=== PATIENT | female | born 1985 | race Caucasian/White ===

== ENCOUNTER → 2019-06-04 09:38 | Outpatient (BNVA) | payer OTHER, SELFPAY | PROVIDERS: Family Provider Nurse Practitioner Family; PCP Nurse Practitioner Family; Visit Provider Registered Nurse | DX: R68.89 Other general symptoms and signs (principal); R51 Headache; J01.40 Acute pansinusitis, unspecified; J98.8 Other specified respiratory disorders; J11.00 Influenza due to unidentified influenza virus with unspecified type of pneumonia | CPT/HCPCS: 87804 ==

== ENCOUNTER → 2020-07-21 13:49 | Outpatient (BNVA) | payer OTHER, SELFPAY | PROVIDERS: Family Provider Nurse Practitioner Family; PCP Nurse Practitioner Family; Visit Provider Registered Nurse | DX: N39.0 Urinary tract infection, site not specified (principal); L71.9 Rosacea, unspecified; R39.9 Unspecified symptoms and signs involving the genitourinary system | CPT/HCPCS: 81000 ==

== ENCOUNTER → 2021-06-03 11:53 | Outpatient (BNVA) | payer OTHER, SELFPAY | PROVIDERS: Family Provider Nurse Practitioner Family; PCP Registered Nurse; Visit Provider Registered Nurse | DX: M25.50 Pain in unspecified joint (principal); E53.8 Deficiency of other specified B group vitamins | CPT/HCPCS: 80053; 82607; 84443; 85025; 85651; 86038; 86140; 86431 ==

== ENCOUNTER → 2022-05-11 12:30 | Outpatient (BNVA) | payer OTHER, SELFPAY | PROVIDERS: Family Provider Nurse Practitioner Family; PCP Registered Nurse; Visit Provider Nurse Practitioner Women's Health | DX: Z01.419 Encounter for gynecological examination (general) (routine) without abnormal findings (principal); Z12.4 Encounter for screening for malignant neoplasm of cervix; N92.0 Excessive and frequent menstruation with regular cycle; Z30.09 Encounter for other general counseling and advice on contraception; N39.46 Mixed incontinence | CPT/HCPCS: 84439; 84443; 84702; 85025; 87624 ==

== ENCOUNTER → 2022-05-23 11:14 | Outpatient (BNVA) | payer OTHER, SELFPAY | PROVIDERS: Family Provider Nurse Practitioner Family; PCP Registered Nurse; Visit Provider Nurse Practitioner Women's Health | DX: N92.0 Excessive and frequent menstruation with regular cycle (principal); D25.1 Intramural leiomyoma of uterus | CPT/HCPCS: 76830 ==

== ENCOUNTER → 2022-05-26 14:28 | Outpatient (BNVA) | payer OTHER, SELFPAY | PROVIDERS: Family Provider Nurse Practitioner Family; PCP Registered Nurse; Visit Provider Nurse Practitioner Women's Health | DX: N93.9 Abnormal uterine and vaginal bleeding, unspecified (principal) | CPT/HCPCS: 88305 ==

== ENCOUNTER → 2022-08-02 15:45 | Outpatient (BNVA) | payer OTHER, SELFPAY | PROVIDERS: Family Provider Nurse Practitioner Family; PCP Registered Nurse; Visit Provider Obstetrics & Gynecology | DX: D25.9 Leiomyoma of uterus, unspecified (principal) | CPT/HCPCS: 83001; 84443; 84702 ==

== ENCOUNTER → 2022-09-15 16:39 | Outpatient (BNVA) | payer OTHER, SELFPAY | PROVIDERS: Family Provider Nurse Practitioner Family; PCP Registered Nurse; Visit Provider Registered Nurse | DX: L98.9 Disorder of the skin and subcutaneous tissue, unspecified (principal) | CPT/HCPCS: 88305 ==

== ENCOUNTER 2022-09-21 14:13 | Observation (INO) | payer OTHER, SELFPAY ==
[2022-09-19 13:17] LABS: Basophils # 0.1 10^3/uL (0.0-0.1); Basophils % 0.6 %; Eosinophils # 0.1 10^3/uL (0.0-0.8); Eosinophils % 1.2 %; Hematocrit 39.1 % (37.0-47.0); Hemoglobin 13.2 g/dL (11.5-15.3); Lymphocytes # 1.9 10^3/uL (0.8-4.8); Lymphocytes % 23.2 %; Mean Corpuscular HGB Conc 33.8 g/dL (30.0-36.0); Mean Corpuscular Hemoglobin 29.7 pg (28.0-34.0); Mean Corpuscular Volume 87.9 fl (81-99); Mean Platelet Volume 10.3 fL (7.4-10.4); Monocytes # 0.4 10^3/uL (0.2-0.9); Monocytes % 4.6 %; Neutrophils # 5.62 10^3/uL (1.8-7.7); Neutrophils % 69.9 %; Nucleated Red Blood Cells % 0 %; Platelet Count 243 10^3/cmm (130-400); Red Blood Count 4.45 10^6/uL (4.1-5.3); Red Cell Distribution Width 11.7 % (12.1-15.1); White Blood Count 8.1 10^3/uL (4.0-10.0)
--- NOTE | 2022-09-19 13:20 | ANES.PREANE2 ---
Pre-Anesthetic Assessment Height/Weight: Height 1.68 m Weight 86.183 kg Operation Date: 09/21/22 09:05 Proposed Procedures p Total Vaginal Hysterectomy(Not Applicable) - Omar Sinclair MD s Total vaginal hysterectomy, single incision slin,60909,D25.1, N92.0,N39.46(Not Applicable) - Omar Sinclair MD Familial anesthetic complications: none Was Beta Ese taken within 24 hours: N/A Was Clonidine taken within 24 hours: N/A Social No alcohol and No tobacco Exam alert, oriented x 3, clear to auscultation bilaterally and regular rate & rhythm Airway Submandibular: within normal limits Cervical ROM: within normal limits Mallampati: Class II Dentition: full Neuropsych Headache Anesthetic Plan ASA status: 1 Anesthesia: General Medications/Allergies Home Medications Medication Instructions Recorded Confirmed Last Taken Type ribhpindic-ecqunnhpmbyvh-fwbydqur 1 cap PO Q6H PRN Migraine Headache 09/02/22 09/19/22 09/12/22 History 50 mg-325 mg-40 mg capsule (Esgic) Allergies Allergy/AdvReac Type Severity Reaction Status Date / Time benzoyl peroxide Allergy Severe Chemical Verified 09/19/22 12:31 burn [facility] Anesthesia Medical History No pertinent past medical history neghx: htn,dm,thyroid,dvt/pe PCP: Rizwan Barrow Tremor hand and body--- being evaluated by Neurology Surgical History H/O dilation and curettage (~2013) retained placenta H/O lumpectomy Bilateral - both returned benign History of appendectomy Family History Father Rheumatoid arthritis Gout Arthritis Mother Diabetes Family/Other Diabetes maternal Heart disease paternal Hyperchloremia paternal Hypertension paternal Grandmother Diabetes maternal Sister Diabetes Stroke Brother Stroke Denies family history of Colon cancer Ovarian cancer Breast cancer Uterine cancer Thyroid condition Social History Smoking and tobacco status: never smoked Alcohol intake: never Substance/Drug Use: never Adopted: No Caregiver/support person: No Lives independently: No Household members: spouse Marital status: service: No Current occupational status: employed Sexually active: Yes Do you think of yourself as: Straight/Heterosexual Current gender identity: Female Female Reproductive History Date of last menstrual period: 09/09/22 Data Anesthesia 09/19/22 12:49 09/19/22 12:49 Short CBC 09/19/22 Range/Units 12:49 WBC 8.1 (4.0-10.0) 10^3/uL Hgb 13.2 (11.5-15.3) g/dL Hct 39.1 (37.0-47.0) % MCV 87.9 (81-99) fl Plt Count 243 (130-400) 10^3/cmm Neut % (Auto) 69.9 % Neut # (Auto) 5.62 (1.8-7.7) 10^3/uL Cardiac Studies: No Data to Display
[2022-09-19 13:29] LABS: Alanine Aminotransferase 11 U/L (0-33); Albumin Level 4.4 g/dL (3.5-5.2); Alkaline Phosphatase 56 U/L (35-105); Anion Gap 13.7 (5-19); Aspartate Amino Transferase 11 U/L (0-32); Blood Urea Nitrogen 14 mg/dL (6-20); Calcium 8.6 mg/dL (8.5-10.5); Carbon Dioxide 24 mmol/L (22-29); Chloride 104 mmol/L (98-107); Globulin 2.7 g/dL (1.3-4.6); Glomerular Filtration Rate 111.3 mL/min (90-130); Glucose 106 mg/dL (65-115); Osmolality Calculated 287 mOsm/kg (285-295); Potassium 3.7 mmol/L (3.5-5.1); Sodium 138 mmol/L (136-145); Total Protein 7.1 g/dL (6.6-8.7)
[2022-09-21] VITALS (17 sets, daily range): BP systolic 90–141; BP diastolic 23–82; PULSE 53–80; RESP 16–18; TEMP 36.1–36.8; O2SAT 95–100
[2022-09-21 08:00] LABS: Add Urine Microscopic? NO; Charge for UA Resulting for Rev
[2022-09-21] MEDS: sodium chloride 0.9% 500 ML IV (08:16)
[2022-09-21] MEDS: scopolamine 1.5 Patch 1 PATCH TRANSDERMA (08:17)
[2022-09-21 08:34] LABS: Bilirubin Urine Neg (Negative); Blood Urine Neg (Negative); Glucose Urine UA Norm (Normal); Ketones Urine Negative (Negative); Leukocyte Esterase Urine Negative (Negative); Nitrate Urine Negative (Negative); Protein Urine Neg (Negative); Urine Appearance Clear (CLEAR); Urine Color Yellow (Yellow); Urobilinogen Urine Norm (Negative); pH Urine 5 (5-7)
[2022-09-21 08:37] LABS: OR HCG Qualitative Urine Negative (Negative)
[2022-09-21] MEDS: sodium chloride 0.9% 1,000 ML 30 ML IV (09:02)
--- NOTE | 2022-09-21 09:32 | W.PM.OPSUD ---
Surgery/Procedure H&P Update DATE OF PROCEDURE: September 21, 2022 DATE H&P PERFORMED: 09/19/22 H&P UPDATE INFORMATION: I have reviewed H&P completed within last 30 days, I have examined patient prior to procedure and No changes to prior documentation PREOP DIAGNOSIS: Abnormal uterine bleeding, uterine fibroid, Mixed urinary incontinenece PLANNED PROCEDURE: Operation Date: 09/21/22 09:05 Proposed Procedures p Total Vaginal Hysterectomy(Not Applicable) - Omar Sinclair MD s Total vaginal hysterectomy, single incision slin,93355,D25.1, N92.0,N39.46(Not Applicable) - Omar Sinclair MD
--- NOTE | 2022-09-21 09:42 | P.ANESUD_ITS ---
Pre-Anesthetic Update Pre-Anesthetic Assessment: Date of Surgery/Procedure: 09/21/22 Preop Tenisha gnosis: Abnormal uterine bleeding, uterine fibroid, Mixed urinary incontinenece Proposed Procedure: Operation Date: 09/21/22 09:05 Proposed Procedures p Total Vaginal Hysterectomy(Not Applicable) - Omar Sinclair MD s Total vaginal hysterectomy, single incision slin,75064,D25.1, N92.0,N39.46(Not Applicable) - Omar Sinclair MD Any changes to Pre-Anesthetic Assessment?: No Last Intake: Intake Last Liquid Date 09/20/22 Last Liquid Time 20:30 Last Solid Date 09/20/22 Last Solid Time 18:30 Labs Last 48hrs: Short CBC 09/19/22 Range/Units 12:49 WBC 8.1 (4.0-10.0) 10^3/ uL Hgb 13.2 (11.5-15.3) g/dL Hct 39.1 (37.0-47.0) % MCV 87.9 (81-99) fl Plt Count 243 (130-400) 10^3/c mm Neut % (Auto) 69.9 % Neut # (Auto) 5.62 (1.8-7.7) 10^3/u L BMP 09/19/22 12:49 Sodium 138 Potassium 3.7 Chloride 104 Carbon Dioxide 24 BUN 14 Creatinine 0.6 Glucose 106 Calcium 8.6 Liver Function 09/19/22 Range/Units 12:49 Total Bilirubin 1.0 (0.15-1.2) mg/dL AST 11 (0-32) U/L ALT 11 (0-33) U/L Alkaline Phosphata se 56 (35-105) U/L Albumin 4.4 (3.5-5.2) g/dL Urine 09/21/22 Range/Units 07:45 Urine Color Yellow (Yellow) Urine Appearance Clear (CLEAR) Urine pH 5 (5-7) Ur Specific Gravit y 1.030 (1.005-1.030) Urine Protein Neg (Negative) Urine Glucose (UA) Norm (Normal) Urine Ketones Negative (Negative) Urine Nitrate Negative (Negative) Urine Bilirubin Neg (Negative) Ur Leukocyte Brenda ase Negative (Negative) Blood Bank 09/19/22 12:49 Blood Type O Positive Rho(D) Type Positive Antibody Screen Negative Vitals: Temperature 97.1 F L 09/21/22 07:53 Temperature Source Temporal Artery S can 09/21/22 07:53 Pulse Rate 76 09/21/22 07:53 Respiratory Rate 16 09/21/22 07:53 Blood Pressure 141/82 09/21/22 07:53 Blood Pressure Ingrid n 101 09/21/22 07:53 Pulse Oximetry 100 09/21/22 07:53 Oxygen Delivery Me thod Room Air 09/21/22 07:54 Exam: Pre-Anes Outpt Exam: alert, oriented x 3, clear to auscultation bilaterally and regular rate & rhythm Cardiac Studies: No Data to Display
[2022-09-21] MEDS: ceFOXitin 2,000 MG in sodium chloride 0.9% (plus) 50 ML 100 MG IV (09:53)
[2022-09-21] MEDS: lidocaine-epi 2% 20 mL INJ INJECTION (11:16)
--- NOTE | 2022-09-21 11:26 | P.OP_ITS ---
Operative Report Date of procedure: September 21, 2022 Pre-op diagnosis: Preop Diagnosis Abnormal uterine bleeding, uterine fibroid, Mixed urinary incontinenece Post-op diagnosis: Same as above Post-op findings: Enlarged uterus Procedure done: Total vaginal hysterectomy. Bilateral salpingectomy. Single incision mid urethral sling Implants: Coloplast Altis sling Specimens removed/disposition: Uterus. Left and right fallopian tubes Surgeon: Omar Sinclair MD Estimated blood loss (mL): 100 IV fluids (mL): 1,200 Urine output (mL): 300 Complications: None Procedure: After informed consent and risks, benefits, indications and alternatives reviewed with the patient was taken to the operating room. The patient was placed in dorsal lithotomy position prepped, and draped in the usual sterile fashion. The pre-procedure timeout verifying the correct patient, procedure, site and side, could not requirements was performed and acknowledge by the OR team. A Collins catheter was placed. A Bookwalter vaginal retractor was placed into the vagina in usual manner visualize the cervix. Cervix was grasped with a single tooth tenaculum and circumferentially infiltrated with 2% lidocaine with epinephrine. Then cervix was circumferentially incised with bovie and the bladder was dissected off the pubovesical cervical fascia anteriorly with a sponge stick and Metzenbaum scissors. The anterior peritoneal reflection was identified and the anterior cul-de-sac was entered sharply with Metzenbaum scissors. The same procedure was performed posteriorly and a posterior colpotomy was made through the posterior cul-de-sac space without difficulty and the posterior blade of the Bookwalter vaginal retractor was advanced posteriorly into the cul-de-sac. At this time, the left and right uterosacral ligaments were isolated and ligated with 0 Vicryl. The Enseal device was placed over the uterosacral ligaments on either side and was then used in a serial fashion up through the cardinal ligaments bilaterally cross-clamped, cut, and sealed with the Enseal device. Finally, the uterine arteries were cross-clamped, cut, sealed and ligated with the Enseal device. Hemostasis was assured. The broad ligaments were then serially clamped, sealed and cut with the Enseal device on both sides. Excellent hemostasis was visualized. Both cornua were clamped, sealed and cut with the Enseal device. Then the pedicles were then suture ligated with excellent hemostasis. The uterus was excised and submitted for pathologic evaluation. No other abnormalities were noted in the pelvic cavity. The peritoneum was then closed in a pursestring fashion with 0 Vicryl suture. The vaginal cuff angles were closed with [id number] #0 Vicryl suture on both sides and transfixed with the ipsilateral cardinal and uterosacral ligaments. The remainder of the vaginal cuff was closed with #0 Vicryl in a running locked fashion. Then proceeded to perform the single incision mid urethral sling. The anterior vaginal mucosa beneath the midurethra was infiltrated with 2% lidocaine with epinephrine. A vertical midline incision was made beneath the midurethra, nearly 1.5 cm length. Careful submucosal dissection was performed bilaterally up to the interior portion of the inferior pubic ramus. The insertion of adductor longus tendon on the patient?s pubic ramus was identified as reference land toshia. Palpated the notch along the internal edge of ischiopubic ramus where the adductor longus tendon and the inferior pubic ramus meet. The Altis single incision sling (SIS) was selected. Then the needle of the SIS inserted aiming at the location of this notch. One of the integrated self- fixating tips place onto the needle by sliding it over the end of the needle. The needle/sling assembly was inserted toward the location of identified reference notch making sure that the flat of the handle is perpendicular to the desired path. The needle was tracked along the posterior surface of the ischiopubic ramus until the midline toshia on the mesh is approximately at the midline position under the urethra. The needle was removed and the same was repeated on the contralateral side until the appropriate sling tension under the urethra was achieved ensuring that the mesh lays flat. The needle was removed and vaginal incision was closed in a running interlocking fashion with 2-0 Vicryl. At this time, instruments were removed from the vagina at hemostasis assured. Then the Collins catheter was noted yielding clear jennifer urine. The patient was taken out of dorsal lithotomy position and awakened from the general anesthesia. The patient tolerated the procedure well and was taken to the PACU recovery room in a stable condition. Sponge, lap, needle and instruments counts were correct x3.
--- NOTE | 2022-09-21 14:10 | ANE.PACU2 ---
Inpatient post-anesthesia follow up: Airway intact: Yes Vital signs: Temperature 97.4 F Pulse Rate 64 Respiratory Rate 18 Blood Pressure 110/56 Pulse Oximetry 97 Oxygen Delivery Me thod Room Air Oxygen Flow Rate Fraction of Inspir ed Oxygen Hydration adequate: Yes Nausea and vomiting: No Pain level: 3 Mental status: Baseline
[2022-09-21] MEDS: ketorolac 30 mg/mL INJ IVP ×2 (14:30→20:20)
[2022-09-21] MEDS: docusate sodium 100 mg Capsule PO (20:20)
[2022-09-21] MEDS: HYDROcodone-acetaminophen 5-325 mg Tablet PO (23:11)
[2022-09-21] MEDS: dextrose 5%-lactated ringers 1,000 ML 125 ML IV (23:11)
[2022-09-21] MEDS: simethicone 80 mg Chew PO (23:11)
[2022-09-22] MEDS: ketorolac 30 mg/mL INJ IVP (01:49)
[2022-09-22 04:00] VITALS: BP 121/69; PULSE 75; RESP 18; TEMP 36.7; O2SAT 97
[2022-09-22 05:55] LABS: Hematocrit 31.7 % (37.0-47.0); Hemoglobin 10.5 g/dL (11.5-15.3); Mean Corpuscular HGB Conc 33.1 g/dL (30.0-36.0); Mean Corpuscular Hemoglobin 29.5 pg (28.0-34.0); Mean Platelet Volume 10.1 fL (7.4-10.4); Platelet Count 197 10^3/cmm (130-400); Red Blood Count 3.56 10^6/uL (4.1-5.3); Red Cell Distribution Width 11.9 % (12.1-15.1); White Blood Count 12.1 10^3/uL (4.0-10.0)
--- NOTE | 2022-09-22 05:55 | PC.NURSE ---
Searched for vaginal packing, none noted.
[2022-09-22] MEDS: simethicone 80 mg Chew PO (05:56)
--- NOTE | 2022-09-22 06:47 | PC.NURSE ---
This nurse handed off care of pt to Jovita Robles RN on 09-21-22 @ 2100.
[2022-09-22] MEDS: HYDROcodone-acetaminophen 5-325 mg Tablet PO (06:50)
--- NOTE | 2022-09-22 08:46 | P.DS_ITS ---
Discharge Providers [employer] TECHNOLOGY SPECIALIST Date of Admission: 09/21/22 14:13 Date of Discharge: 09/22/22 Attending Provider at Admission: Omar Sinclair MD Attending Provider at Discharge: Omar Sinclair MD Primary Care Provider: CONNIE Loza Reason for Visit Reason for Visit: D25.1, N92.0, N39.46 Brief History: Ms. Blevins is a 37 year old with history of abnormal uterine bleeding unresponsive to medical management, uterine fibroid, mixed urinary incontinence Hospital Course Hospital Course Ms. Blevins is a 37 year old with history of abnormal uterine bleeding, uterine fibroid, mixed urinary incontinence admitted for planned total vaginal hysterectomy and single incision mid urethral sling. A total vaginal hysterectomy with bilateral salpingectomy and single incision mid urethral sling was performed without complications. Patient tolerated the procedure well. Overnight observation was uneventful. PVR within normal limits. Tolerating diet well. Ambulating without difficulty. Afebrile and hemodynamically stable postoperative day 1. The patient was counseled regarding pelvic rest for 6 weeks (no sex, no tampons, no vaginal douches). Return to the emergency room if any fever, increased bleeding or pain. Physical Exam Narrative: GA: Alert and oriented ?3. HEENT: WNL. Heart: Regular rate and rhythm. Lungs: Clear to auscultation bilaterally. Abdomen: Bowel sounds present, nontender. COATING [employer] WORKER: Spotting bleeding. Extremities: No edema, no cyanosis, no calves pain. Urinary Catheter Management: Collins: Cath Placed During This Visit: yes, but has since been removed by the nurse Reason for Continuing Indwelling Catheter: Decision to DC Catheter Urinary Catheter Date of Insertion: 09/21/22 Urinary Catheter Time of Insertion: 10:30 Date Urinary Catheter Removed: 09/22/22 Time Urinary Catheter Discontinued: 05:55 History History History 4 Term 2 0 Miscarriages/Ectopic 2 Living Children 2 Discharge Data Studies Completed and Pending Pending at discharge Category Date Time Status Pathology: Surgical [PTH] Routine Pth 09/21/22 11:10 Received Laboratory Results WBC 12.1 10^3/uL (4.0-10.0) H 09/22/22 05:45 RBC 3.56 10^6/uL (4.1-5.3) L 09/22/22 05:45 Hgb 10.5 g/dL (11.5-15.3) L 09/22/22 05:45 Hct 31.7 % (37.0-47.0) L 09/22/22 05:45 MCV 89.0 fl (81-99) 09/22/22 05:45 MCH 29.5 pg (28.0-34.0) 09/22/22 05:45 MCHC 33.1 g/dL (30.0-36.0) 09/22/22 05:45 RDW 11.9 % (12.1-15.1) L 09/22/22 05:45 Plt Count 197 10^3/cmm (130-400) 09/22/22 05:45 MPV 10.1 fL (7.4-10.4) 09/22/22 05:45 Neut % (Auto) 69.9 % 09/19/22 12:49 Lymph % (Auto) 23.2 % 09/19/22 12:49 [place] % (Auto) 4.6 % 09/19/22 12:49 Eos % (Auto) 1.2 % 09/19/22 12:49 Baso % (Auto) 0.6 % 09/19/22 12:49 Neut # (Auto) 5.62 10^3/uL (1.8-7.7) 09/19/22 12:49 Lymph # (Auto) 1.9 10^3/uL (0.8-4.8) 09/19/22 12:49 [place] # (Auto) 0.4 10^3/uL (0.2-0.9) 09/19/22 12:49 Eos # (Auto) 0.1 10^3/uL (0.0-0.8) 09/19/22 12:49 Baso # (Auto) 0.1 10^3/uL (0.0-0.1) 09/19/22 12:49 Nucleated RBC % (auto) 0 % 09/19/22 12:49 Nucleated RBCs # 0.0 /100WBC 09/19/22 12:49 Sodium 138 mmol/L (136-145) 09/19/22 12:49 Potassium 3.7 mmol/L (3.5-5.1) 09/19/22 12:49 Chloride 104 mmol/L (98-107) 09/19/22 12:49 Carbon Dioxide 24 mmol/L (22-29) 09/19/22 12:49 Anion Gap 13.7 (5-19) 09/19/22 12:49 BUN 14 mg/dL (6-20) 09/19/22 12:49 Creatinine 0.6 mg/dL (0.5-0.9) 09/19/22 12:49 GFR Calculation 111.3 mL/min (90-130) 09/19/22 12:49 Glucose 106 mg/dL (65-115) 09/19/22 12:49 Calculated Osmolality 287 mOsm/kg (285-295) 09/19/22 12:49 Calcium 8.6 mg/dL (8.5-10.5) 09/19/22 12:49 Total Bilirubin 1.0 mg/dL (0.15-1.2) 09/19/22 12:49 AST 11 U/L (0-32) 09/19/22 12:49 ALT 11 U/L (0-33) 09/19/22 12:49 Alkaline Phosphatase 56 U/L (35-105) 09/19/22 12:49 Total Protein 7.1 g/dL (6.6-8.7) 09/19/22 12:49 Albumin 4.4 g/dL (3.5-5.2) 09/19/22 12:49 Globulin 2.7 g/dL (1.3-4.6) 09/19/22 12:49 Urine Color Yellow (Yellow) 09/21/22 07:45 Urine Appearance Clear (CLEAR) 09/21/22 07:45 Urine pH 5 (5-7) 09/21/22 07:45 Ur Specific [place] 1.030 (1.005-1.030) 09/21/22 07:45 Urine Protein Neg (Negative) 09/21/22 07:45 Urine Glucose (UA) Norm (Normal) 09/21/22 07:45 Urine Ketones Negative (Negative) 09/21/22 07:45 Urine Blood Neg (Negative) 09/21/22 07:45 Urine Nitrate Negative (Negative) 09/21/22 07:45 Urine Bilirubin Neg (Negative) 09/21/22 07:45 Urine Urobilinogen Norm mg/dL (Negative) 06/21/23 07:45 Ur Leukocyte Esterase Negative (Negative) 09/21/22 07:45 Urine HCG, Qual Negative (Negative) 09/21/22 07:45 Blood Type O Positive 09/19/22 12:49 Rho(D) Type Positive 09/19/22 12:49 Antibody Screen Negative 09/19/22 12:49 Vitals Last Vital Signs Temp 98.1 F 09/22/22 04:00 Pulse 75 09/22/22 04:00 Resp 18 09/22/22 04:00 BP 121/69 09/22/22 04:00 Pulse Ox 97 09/22/22 04:00 O2 Del Method Room Air 09/22/22 04:00 Discharge Plan Discharge Patient Disposition: Home Condition: Stable Prescriptions: New hydrocodone-acetaminophen 5-325 mg tablet 1 tab PO Q4H PRN (Reason: pain) Qty: 15 0RF acetaminophen 325 mg capsule 325 mg PO Q4H PRN (Reason: fever or pain) Qty: 60 0RF docusate sodium [Colace] 100 mg capsule 100 mg PO BID Qty: 60 0RF ferrous sulfate [Iron (ferrous sulfate)] 325 mg (65 mg iron) tablet 325 mg PO BID Qty: 60 0RF ibuprofen 800 mg tablet 800 mg PO TID PRN (Reason: pain) Qty: 60 0RF Continued aqiurmlkgv-hgqgwtfkfgion-diez [Esgic] 50-325-40 mg capsule 1 cap PO Q6H PRN (Reason: Migraine Headache) Discharge Orders: Discharge Order (Routine); Ordered 09/22/22 Ordered By: Omar Sinclair Referrals: Omar Sinclair MD [Physician] - 2 weeks Discharge Diet: Usual diet Discharge Activity: Limit activity as instructed Patient Instructions: Opioid Safety, Vaginal Hysterectomy (GEN), Bladder Sling for Women (DC) Activity Restrictions/Additional Instructions: 1. Please call [facility] on next working day to make your post-operative appointment in 2 weeks. 2. Please stay home until you come back to the clinic on first post- hospatilization check up. 3. Please follow instructions on your medications CAREFULLY. 4. If you have abdominal incision, do not cover it unless dressing is necessary because of drainage. OK to shower, but avoid bath. Leave steri-strips until they fall off. If they are still on one week after surgery, you may remove them. 5. If you had vaginal surgery or vaginal repair, Dr. Sinclair may instruct you to take SITZ bath. 6. Yellow, blood tinged odorous vaginal discharge is usually normal after hysterectomy or vaginal surgeries. 7. No SEXUAL INTERCOURSE, tampons, or douches until you are completely released from the post-operative care. 8. Avoid constipation by eating right and maybe using some Metamucil or Milk of Magnesia. 9. All prescription refills are given during the working hours. Please do no wait till it runs out. Call the clinic at [phone] before your medication runs out. The clinic will get in touch with your doctor to prescribe medications if necessary. 10. Please remain within 40 mile radius from our hospital because emergencies do happen now and then during the post-operative period. 11. If you have stairs at home, take one step at a time slowly and minimize the number of trips. It helps to stay in one floor for the next few days. No lifting except what you can lift by one hand until you are released from the post-operative care. 12. Driving is discouraged until you are well healed. It may be 3-4 weeks before you feel strong enough to drive. You should be able to turn and look through the rear window without pain and you should be able to push the brake pedal very hard without pain before you drive. No fast rules, but SAFETY should be your primary concern. DO NOT drive if you are on sedating medications such as narcotics. 13. Call the clinic (during working hours) to make urgent appointment or go to the Emergency room, if any of the following occurs: i. Vaginal bleeding becomes heavy, more than a period. ii. Incision becomes red and sore, or drains pus. iii. Your TEMPERATURE is over 100.4F or you have chill. iv. IV site becomes red and swollen (a little ``knot?? is usually OK) v. Persistent nausea and vomiting vi. Persistent constipation or diarrhea vii. Rash or allergic reaction to medications. Discharge Attestations [employer] TECH[employer]OLOG[employer] SPECIALIST Time Spent in Discharge Care*: greater than 30 min Coding Level of Care Code Acute Code for Chg Fwd Diagnoses
[2022-09-22] MEDS: ibuprofen 800 mg tablet PO (08:53)
[2022-09-22] MEDS: docusate sodium 100 mg Capsule PO (08:53)
--- NOTE | 2022-09-22 09:09 | P.DS_ITS ---
Discharge Providers WHITEWASHER Date of Admission: 09/21/22 14:13 Date of Discharge: 09/22/22 Attending Provider at Admission: Omar Sinclair MD Attending Provider at Discharge: Omar Sinclair MD Primary Care Provider: CONNIE Loza Reason for Visit Reason for Visit: D25.1, N92.0, N39.46 Hospital Course Hospital Course Ms. Blevins is a 37 year old with history of abnormal uterine bleeding, uterine fibroid, mixed urinary incontinence admitted for planned total vaginal hysterectomy and single incision mid urethral sling. A total vaginal hysterectomy with bilateral salpingectomy and single incision mid urethral sling was performed without complications. Patient tolerated the procedure well. Overnight observation was uneventful. PVR within normal limits. Tolerating diet well. Ambulating without difficulty. Afebrile and hemodynamically stable postoperative day 1. The patient was counseled regarding pelvic rest for 6 weeks (no sex, no tampons, no vaginal douches). Return to the emergency room if any fever, increased bleeding or pain. Physical Exam Urinary Catheter Management: Collins: Cath Placed During This Visit: yes, but has since been removed by the nurse Reason for Continuing Indwelling Catheter: Decision to DC Catheter Urinary Catheter Date of Insertion: 09/21/22 Urinary Catheter Time of Insertion: 10:30 Date Urinary Catheter Removed: 09/22/22 Time Urinary Catheter Discontinued: 05:55 History History History 4 Term 2 0 Miscarriages/Ectopic 2 Living Children 2 Discharge Data Studies Completed and Pending Pending at discharge Category Date Time Status Pathology: Surgical [PTH] Routine Pth 09/21/22 11:10 Received Laboratory Results WBC 12.1 10^3/uL (4.0-10.0) H 09/22/22 05:45 RBC 3.56 10^6/uL (4.1-5.3) L 09/22/22 05:45 Hgb 10.5 g/dL (11.5-15.3) L 09/22/22 05:45 Hct 31.7 % (37.0-47.0) L 09/22/22 05:45 MCV 89.0 fl (81-99) 09/22/22 05:45 MCH 29.5 pg (28.0-34.0) 09/22/22 05:45 MCHC 33.1 g/dL (30.0-36.0) 09/22/22 05:45 RDW 11.9 % (12.1-15.1) L 09/22/22 05:45 Plt Count 197 10^3/cmm (130-400) 09/22/22 05:45 MPV 10.1 fL (7.4-10.4) 09/22/22 05:45 Neut % (Auto) 69.9 % 09/19/22 12:49 Lymph % (Auto) 23.2 % 09/19/22 12:49 [place] % (Auto) 4.6 % 09/19/22 12:49 Eos % (Auto) 1.2 % 09/19/22 12:49 Baso % (Auto) 0.6 % 09/19/22 12:49 Neut # (Auto) 5.62 10^3/uL (1.8-7.7) 09/19/22 12:49 Lymph # (Auto) 1.9 10^3/uL (0.8-4.8) 09/19/22 12:49 [place] # (Auto) 0.4 10^3/uL (0.2-0.9) 09/19/22 12:49 Eos # (Auto) 0.1 10^3/uL (0.0-0.8) 09/19/22 12:49 Baso # (Auto) 0.1 10^3/uL (0.0-0.1) 09/19/22 12:49 Nucleated RBC % (auto) 0 % 09/19/22 12:49 Nucleated RBCs # 0.0 /100WBC 09/19/22 12:49 Sodium 138 mmol/L (136-145) 09/19/22 12:49 Potassium 3.7 mmol/L (3.5-5.1) 09/19/22 12:49 Chloride 104 mmol/L (98-107) 09/19/22 12:49 Carbon Dioxide 24 mmol/L (22-29) 09/19/22 12:49 Anion Gap 13.7 (5-19) 09/19/22 12:49 BUN 14 mg/dL (6-20) 09/19/22 12:49 Creatinine 0.6 mg/dL (0.5-0.9) 09/19/22 12:49 GFR Calculation 111.3 mL/min (90-130) 09/19/22 12:49 Glucose 106 mg/dL (65-115) 09/19/22 12:49 Calculated Osmolality 287 mOsm/kg (285-295) 09/19/22 12:49 Calcium 8.6 mg/dL (8.5-10.5) 09/19/22 12:49 Total Bilirubin 1.0 mg/dL (0.15-1.2) 09/19/22 12:49 AST 11 U/L (0-32) 09/19/22 12:49 ALT 11 U/L (0-33) 09/19/22 12:49 Alkaline Phosphatase 56 U/L (35-105) 09/19/22 12:49 Total Protein 7.1 g/dL (6.6-8.7) 09/19/22 12:49 Albumin 4.4 g/dL (3.5-5.2) 09/19/22 12:49 Globulin 2.7 g/dL (1.3-4.6) 09/19/22 12:49 Urine Color Yellow (Yellow) 09/21/22 07:45 Urine Appearance Clear (CLEAR) 09/21/22 07:45 Urine pH 5 (5-7) 09/21/22 07:45 Ur Specific Jasper 1.030 (1.005-1.030) 09/21/22 07:45 Urine Protein Neg (Negative) 09/21/22 07:45 Urine Glucose (UA) Norm (Normal) 09/21/22 07:45 Urine Ketones Negative (Negative) 09/21/22 07:45 Urine Blood Neg (Negative) 09/21/22 07:45 Urine Nitrate Negative (Negative) 09/21/22 07:45 Urine Bilirubin Neg (Negative) 09/21/22 07:45 Urine Urobilinogen Norm mg/dL (Negative) 09/21/22 07:45 Ur Leukocyte Esterase Negative (Negative) 09/21/22 07:45 Urine HCG, Qual Negative (Negative) 09/21/22 07:45 Blood Type O Positive 09/19/22 12:49 Rho(D) Type Positive 09/19/22 12:49 Antibody Screen Negative 09/19/22 12:49 Vitals Last Vital Signs Temp 98.1 F 09/22/22 04:00 Pulse 75 09/22/22 04:00 Resp 18 06/22/23 04:00 BP 121/69 09/22/22 04:00 Pulse Ox 97 09/22/22 04:00 O2 Del Method Room Air 09/22/22 04:00 Discharge Plan Discharge Patient Disposition: Home Condition: Stable Prescriptions: New hydrocodone-acetaminophen 5-325 mg tablet 1 tab PO Q4H PRN (Reason: pain) Qty: 15 0RF acetaminophen 325 mg capsule 325 mg PO Q4H PRN (Reason: fever or pain) Qty: 60 0RF docusate sodium [Colace] 100 mg capsule 100 mg PO BID Qty: 60 0RF ferrous sulfate [Iron (ferrous sulfate)] 325 mg (65 mg iron) tablet 325 mg PO BID Qty: 60 0RF ibuprofen 800 mg tablet 800 mg PO TID PRN (Reason: pain) Qty: 60 0RF Continued qghwxpnhmc-aonycvxjcyjog-adfv [Esgic] 50-325-40 mg capsule 1 cap PO Q6H PRN (Reason: Migraine Headache) Discharge Orders: Discharge Order (Routine); Ordered 09/22/22 Ordered By: Omar Sinclair Referrals: Omar Sinclair MD [Physician] - 2 weeks Discharge Diet: Usual diet Discharge Activity: Limit activity as instructed Patient Instructions: Bladder Sling for Women (DC), Vaginal Hysterectomy (GEN), Opioid Safety Activity Restrictions/Additional Instructions: 1. Please call [facility] on next working day to make your post-operative appointment in 2 weeks. 2. Please stay home until you come back to the clinic on first post- hospatilization check up. 3. Please follow instructions on your medications CAREFULLY. 4. If you have abdominal incision, do not cover it unless dressing is necessary because of drainage. OK to shower, but avoid bath. Leave steri-strips until they fall off. If they are still on one week after surgery, you may remove them. 5. If you had vaginal surgery or vaginal repair, Dr. Sinclair may instruct you to take SITZ bath. 6. Yellow, blood tinged odorous vaginal discharge is usually normal after hysterectomy or vaginal surgeries. 7. No SEXUAL INTERCOURSE, tampons, or douches until you are completely released from the post-operative care. 8. Avoid constipation by eating right and maybe using some Metamucil or Milk of Magnesia. 9. All prescription refills are given during the working hours. Please do no wait till it runs out. Call the clinic at [phone] before your medication runs out. The clinic will get in touch with your doctor to prescribe medications if necessary. 10. Please remain within 40 mile radius from our hospital because emergencies do happen now and then during the post-operative period. 11. If you have stairs at home, take one step at a time slowly and minimize the number of trips. It helps to stay in one floor for the next few days. No lifting except what you can lift by one hand until you are released from the post-operative care. 12. Driving is discouraged until you are well healed. It may be 3-4 weeks before you feel strong enough to drive. You should be able to turn and look through the rear window without pain and you should be able to push the brake pedal very hard without pain before you drive. No fast rules, but SAFETY should be your primary concern. DO NOT drive if you are on sedating medications such as narcotics. 13. Call the clinic (during working hours) to make urgent appointment or go to the Emergency room, if any of the following occurs: i. Vaginal bleeding becomes heavy, more than a period. ii. Incision becomes red and sore, or drains pus. iii. Your TEMPERATURE is over 100.4F or you have chill. iv. IV site becomes red and swollen (a little ``knot?? is usually OK) v. Persistent nausea and vomiting vi. Persistent constipation or diarrhea vii. Rash or allergic reaction to medications. Coding Level of Care Code Acute Code for Chg Fwd Diagnoses
[2022-09-22] MEDS: HYDROcodone-acetaminophen 5-325 mg Tablet 1 TAB PO (10:59)
[2022-09-22 11:00] VITALS: BP 116/69; PULSE 73; RESP 16; TEMP 37.6; O2SAT 96
== END 2022-09-22 11:10 | disposition home or self-care (01) ==
LOC: OBGYN 19:06
PROVIDERS: Admitting Provider Obstetrics & Gynecology; PCP Registered Nurse; Visit Provider Obstetrics & Gynecology
PROC: (CPT 57288; principal; 2022-09-21 08:55)
PROC: (CPT 57288; 2022-09-21 08:55)
PROC: (CPT 58700; 2022-09-21 08:55)
DX: N93.9 Abnormal uterine and vaginal bleeding, unspecified (principal); D25.9 Leiomyoma of uterus, unspecified; N39.46 Mixed incontinence
CPT/HCPCS: 57288; 58262; 36415; 51798; 80053; 81003; 81025; 84703; 85025; 85027; 86850; 86900; 88307; 96374; 96376; C1713; G0378; J0694; J1100; J1170; J1200; J1885; J2250; J2405; J2704; J2710; J3010; J3490; J7030; J7040; J7121; Q9968

== ENCOUNTER 2023-12-13 10:58 | Outpatient (CLI) | payer OTHER, SELFPAY ==
--- NOTE | 2023-12-13 11:00 | MM_ITS ---
WS: [email or web address] SCREENING DIGITAL TOMOSYNTHESIS MAMMOGRAM WITH CAD HISTORY: Z12.31 - Encounter for screening mammogram for malignant ... COMPARISON: None available. Bilateral CC and MLO with tomosynthesis views submitted. Synthetic mammography reviewed. Computer aid ed detection analyzed. Breast composition: The breasts are heterogeneously dense, which may obscure small masses. Ovoid mass identified posteriorly at 12:00 measures 12 x 7 mm and needs to be further evaluated by ultrasound. There is an additional area of very subtle distortion seen only on the tomosynthesis in the anterior lateral LEFT breast. This asymmetry is noted only on the MLO view. MM/[place] [id number] IMPRESSION: BI-RADS: 0 - Incomplete: Need additional imaging evaluation FOLLOW UP: Need Additional Imaging LEFT breast: Spot compression views ( MLO). True ML. Spot imaging of the kanwal ectural distortion only. Ultrasound to follow if abnormality persists. LEFT breast: Ultrasound well-circumscribed mass at 12:00 posterior and possibly the area of architectural distortion if it does not resolve with additional sp ot compression views.
== END 2023-12-13 10:59 | disposition home or self-care (01) ==
LOC: MOBLMAM 11:06
PROVIDERS: PCP Obstetrics & Gynecology; Visit Provider Obstetrics & Gynecology
DX: Z12.31 Encounter for screening mammogram for malignant neoplasm of breast (principal)
CPT/HCPCS: 77063; 77067

== ENCOUNTER 2024-01-16 10:18 | Outpatient (CLI) | payer OTHER, SELFPAY ==
--- NOTE | 2024-01-16 10:30 | MM_ITS ---
WS: [email or web address] ADDITIONAL VIEWS LEFT MAMMOGRAM with tomosynthesis. LEFT BREAST ULTRASOUND HISTORY: R92.8 - Other abnormal and inconclusive findings on diagn... COMPARISON: 12/13/2023 LEFT MAMMOGRAM: Spot compression views and true ML with tomosynthesis and sympathetic mammography. Well-circumscribed high density ovoid mass persists in the posterior LEFT breast towards 12-1 o'clock measuring 14 x 11 x 8 mm. Margins are well-circumscribed. Ultrasound to follow. LEFT BREAST ULTRASOUND 2-D and color Doppler imaging submitted. Hypoechoic slightly lobulated mass is identified at 1:00, 2 cm from the nipple. This mass measures 1. 4 x 1.2 x 0.5 cm. The mass corresponds to an size to the mammographic abnormality. Would expect the m ass to be further than 2 cm from the nipple. We did a second look and no additional abnormality was i dentified. Mild increased vascularity. MM/MM diag LT tomosynthesis [id number] IMPRESSION: BI-RADS: 4- Suspicious Finding - Biopsy Should be Considered FOLLOW UP: Biopsy Recommended Ultrasound-guided biopsy recommended of the LEFT breast mass at 1:00. Recommend LEFT MLO mammogram post biopsy placement of the clip to ensure the ma mmographic and ultrasound findings correspond. Notified Omar Sinclair MD at 01/16/2024 12:42 PM. Message LEFT with office a [employer].
--- NOTE | 2024-01-16 11:00 | US_ITS ---
WS: [email or web address] ADDITIONAL VIEWS LEFT MAMMOGRAM with tomosynthesis. LEFT BREAST ULTRASOUND HISTORY: R92.8 - Other abnormal and inconclusive findings on diagn... COMPARISON: 12/13/2023 LEFT MAMMOGRAM: Spot compression views and true ML with tomosynthesis and sympathetic mammography. Well-circumscribed high density ovoid mass persists in the posterior LEFT breast towards 12-1 o'clock measuring 14 x 11 x 8 mm. Margins are well-circumscribed. Ultrasound to follow. LEFT BREAST ULTRASOUND 2-D and color Doppler imaging submitted. Hypoechoic slightly lobulated mass is identified at 1:00, 2 cm from the nipple. This mass measures 1. 4 x 1.2 x 0.5 cm. The mass corresponds to an size to the mammographic abnormality. Would expect the m ass to be further than 2 cm from the nipple. We did a second look and no additional abnormality was i dentified. Mild increased vascularity. US/US breast LT limited* [id number] IMPRESSION: BI-RADS: 4- Suspicious Finding - Biopsy Should be Considered FOLLOW UP: Biopsy Recommended Ultrasound-guided biopsy recommended of the LEFT breast mass at 1:00. Recommend LEFT MLO mammogram post biopsy placement of the clip to ensure the ma mmographic and ultrasound findings correspond. Notified Omar Sinclair MD at 01/16/2024 12:42 PM. Message LEFT with office a [employer] machine.
== END 2024-01-16 10:19 | disposition home or self-care (01) ==
PROVIDERS: PCP Obstetrics & Gynecology; Visit Provider Obstetrics & Gynecology
DX: R92.8 Other abnormal and inconclusive findings on diagnostic imaging of breast (principal)
CPT/HCPCS: 76642; 77061; G0279

== ENCOUNTER 2024-02-07 14:09 | Outpatient (CLI) | payer OTHER, SELFPAY ==
--- NOTE | 2024-02-07 14:45 | US_ITS ---
WS: [email or web address] ULTRASOUND-GUIDED LEFT BREAST BIOPSY HISTORY: N63.20 - Unspecified lump in the left breast, unspecified... COMPARISON: 01/16/2024 Procedure, risks and complications are explained to the patient. Medications are reviewed. Consent is obtained. The mass in the LEFT breast is localized with ultrasound. Mass localizes to 1:00, 2 cm from the nippl e. Skin is cleansed with ChloraPrep and anesthetized with 1% buffered lidocaine. Small dermatome is m elliott. Under sterile conditions mass is biopsied with a 14-gauge Achieve needle. Multiple core biopsies are performed. Material placed in formalin and sent to pathology for review. No complications encoun tered. Breast tissue marker (Bard ultrasound enhanced ribbon): Single. Patient left the radiology suite with no complications. Patient is instructed to return to [facility] or [facility] with any concerns. US/[place] [id number] IMPRESSION: 1. Uncomplicated core needle biopsy LEFT breast mass at 1:00. PATHOLOGY: Benign fibroadenoma. Negative for malignancy. RECOMMENDATION: 6-month LEFT breast ultrasound follow-up to ensure stability of the fibroadenoma.
== END 2024-02-07 14:10 | disposition home or self-care (01) ==
LOC: RAD 14:12
PROVIDERS: PCP Registered Nurse; Visit Provider Obstetrics & Gynecology
DX: N60.22 Fibroadenosis of left breast (principal)
CPT/HCPCS: 19083; 88305

== ENCOUNTER → 2024-03-15 11:23 | Outpatient (BNVA) | payer OTHER, SELFPAY | PROVIDERS: PCP Registered Nurse; Visit Provider Registered Nurse | DX: R10.9 Unspecified abdominal pain (principal) | CPT/HCPCS: 81000 ==

== ENCOUNTER 2024-04-02 10:06 | Outpatient (CLI) | payer OTHER, SELFPAY ==
--- NOTE | 2024-04-02 10:00 | CT_ITS ---
WS: [email or web address] CT scan of the abdomen and pelvis without Oral and IV contrast. Additional two-dimensional coronal an d sagittal reconstruction was performed. 04/02/2024 Clinical Data: N20.0 - Calculus of kidney Comparison: None. DLP: 561.[address] scans at [facility] use at least one of these dose optimization techniques: automated e xposure control; mA and/or kV adjustment per patient size (includes targeted exams where dose is matc hed to clinical indication); or iterative reconstruction. Findings: The lower lungs show no nodules, masses or effusions. The liver, gallbladder, spleen, adrenal glands and pancreas are normal. The kidneys show no hydronephrosis, renal pelvic dilatation or ureteral calculi. There is a central 0 .3 cm nonobstructing right renal calculus. The abdominal aorta is normal in size. No appendicitis or diverticulitis is seen. The stomach, small bowel and colon are not remarkable. The bladder is unremarkable with no bladder calculi. The uterus is absent. No inguinal hernia is seen . The bones of the lower thorax, lumbar spine, pelvis, and hips are normal. CT/CT kidney stone [id number] Impression: 1. Nonobstructive central 0.3 cm right renal calculus. 2. Negative for obstructing renal or ureteral calculi.
== END 2024-04-02 10:07 | disposition home or self-care (01) ==
LOC: RAD 10:07
PROVIDERS: PCP Registered Nurse; Visit Provider Registered Nurse
DX: N20.0 Calculus of kidney (principal)
CPT/HCPCS: 74176

== ENCOUNTER → 2024-05-08 08:01 | Outpatient (BNVA) | payer OTHER, SELFPAY | PROVIDERS: PCP Registered Nurse; Visit Provider Registered Nurse | DX: R68.89 Other general symptoms and signs (principal); J40 Bronchitis, not specified as acute or chronic | CPT/HCPCS: 87400 ==

== ENCOUNTER → 2024-08-05 10:08 | Outpatient (BNVA) | payer OTHER, SELFPAY | PROVIDERS: PCP Registered Nurse; Visit Provider Registered Nurse | DX: R25.1 Tremor, unspecified (principal); E53.8 Deficiency of other specified B group vitamins; E55.9 Vitamin D deficiency, unspecified; I10 Essential (primary) hypertension | CPT/HCPCS: 80053; 82306; 82607; 85025; 86038 ==

== ENCOUNTER 2024-11-29 10:53 | Outpatient (CLI) | payer OTHER, SELFPAY ==
--- NOTE | 2024-11-29 11:00 | MR_ITS ---
WS: [email or web address] MRI BRAIN WITH AND WITHOUT CONTRAST HISTORY: R25.1 - Tremor, unspecified COMPARISON: None available. TECHNIQUE: Multiplanar imaging performed through the brain with MultiHance 18 ml's IV. No acute infarcts are seen. Liriano-white matter differentiation is well preserved. No susceptibility artifacts or prior lacunar infarcts. Ventricles and extra-axial spaces are normal. Clivus and pituitary gland are normal. 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 Cerebellar tonsils extend just below the foramen magnum. There is no hydrocephalus or edema. Posterior fossa is negative otherwise. Postcontrast images are negative for masses or vascular malformations. Dural venous sinuses are normal. Paranasal sinuses: Well aerated with no significant disease. Mastoid air cells: Normal. Calvarium and scalp: Normal. MR/MR head wo/w con [id number] IMPRESSION: 1. Mild ectopia of the cerebellar tonsils. No Chiari malformation. 2. Normal MRI brain. 3. No diffusion abnormalities or prior infarcts. 4. No prior hemorrhage or ischemic disease.
[2024-11-29] MEDS: gadobenate dimeglumine 20 mL vial 18 ML IV (12:20)
== END 2024-11-29 10:54 | disposition home or self-care (01) ==
LOC: RAD 10:54
PROVIDERS: PCP Registered Nurse; Visit Provider Registered Nurse
DX: R25.1 Tremor, unspecified (principal); G44.229 Chronic tension-type headache, not intractable; R93.0 Abnormal findings on diagnostic imaging of skull and head, not elsewhere classified
CPT/HCPCS: 70553